=== PATIENT | female | born 1975 | race Caucasian/White ===

== ENCOUNTER → 2021-11-20 | Outpatient (CLI) | payer BC | LOC: RAD 10:18 | DX: R22.42 Localized swelling, mass and lump, left lower limb (principal) | CPT/HCPCS: A9585 ==

== ENCOUNTER → 2022-03-05 | Outpatient (CLI) | payer BC | LOC: RAD 14:06 | DX: C49.22 Malignant neoplasm of connective and soft tissue of left lower limb, including hip (principal); R91.8 Other nonspecific abnormal finding of lung field; Z92.21 Personal history of antineoplastic chemotherapy; Z92.3 Personal history of irradiation | CPT/HCPCS: A9575 ==